=== PATIENT | male | born 1965 | race Caucasian/White ===

== ENCOUNTER 2021-02-28 12:17 | Emergency (ER) | payer OTHER, SELFPAY ==
[2021-02-28] VITALS (9 sets, daily range): BP systolic 128–184; BP diastolic 77–109; PULSE 66–85; RESP 16–20; TEMP 36.9; O2SAT 94–98; BMI 30.4
--- NOTE | 2021-02-28 12:17 | ECG_ITS ---
APPROVED REPORT Exam: Resting ECG HR:82 bpm ECG Measurements Heart Rate 82 AXES NV 160 P 30 QRSd 88 QRS 33 QT 382 T 16 QTc 446 Conclusion Normal sinus rhythm Inferior infarct, age undetermined Abnormal ECG Electronically signed by : Jaquan Retana, 02/28/2021 20:06:52
--- NOTE | 2021-02-28 12:18 | XR_ITS ---
PROCEDURE: XR CHEST PORTABLE CLINICAL HISTORY: chest pain COMPARISON: No exams were available for comparison FINDINGS: The cardiomediastinal silhouette and pulmonary vascularity are within normal limits. The lungs are clear without infiltrates, suspicious nodules, or pleural effusions. No acute bony abnormalities. IMPRESSION: No acute findings. Dictated by: Adal Osorio MD 02/28/2021 14:22 Adal Osorio MD in [facility] 02/28/2021 14:22
[2021-02-28 12:29] LABS: Basophils % 0.5 % (0.1-2.0); Eosinophils # 0.1 K/mm3 (0.0-0.4); Eosinophils % 1.2 % (0.1-12.0); Hematocrit 44.3 % (42.0-52.0); Hemoglobin 14.9 g/dL (14.1-18.0); Lymphocytes # 2.4 K/mm3 (0.7-4.5); Lymphocytes % 29.4 % (10-50); Mean Corpuscular HGB Conc 33.6 g/dL (31.8-35.4); Mean Corpuscular Hemoglobin 30.6 pg (27.0-31.2); Mean Corpuscular Volume 91.2 fl (80-94); Mean Platelet Volume 7.9 fl (7.4-10.4); Monocytes # 0.5 K/mm3 (0.1-1.0); Monocytes % 6.1 % (1.7-9.3); Neutrophils % 62.7 % (37.0-80.0); Platelet Count 252 K/mm3 (142-424); Red Blood Count 4.86 M/mm3 (4.60-6.20); Red Cell Distribution Width 13.1 % (11.5-17.5)
[2021-02-28 12:34] LABS: Chloride 105 mmol/L (98-107); Potassium 3.7 mmoL/L (3.5-5.1); Sodium 139 mmol/L (136-145)
--- NOTE | 2021-02-28 12:36 | [facility].EDCP ---
ED Disposition Clinical Impression: Atypical chest pain Disposition: Home, Self-Care Condition on Discharge: Fair Instructions: DI for Atypical Chest Pain Additional Instructions: Follow up with Cardiology with in the next week for consideration of further outpt testing such as exercise stress testing for further evalation. - Critical Care Critical Care Time: No Attestation: On , the high probability of a clinically significant, sudden or life threatening deterioration of the following system(s) required my full and direct attention, intervention and personal management. The time I documented below is in addition to time spent performing reported procedures but includes the following listed in this critical care notation. Medical Decision Making - Medical Records Medical records reviewed: Yes: I reviewed the patient's medical records. - Yevgeniy Inquiry Pt receiving controlled substance: No Vital Signs: 02/28/21 12:17 02/28/21 13:01 02/28/21 13:31 Temperature 98.4 F Temperature Source Oral Pulse Rate 70 68 Pulse Rate [Right Radial] 85 Respiratory Rate 18 18 18 Blood Pressure 134/80 136/90 Blood Pressure [Right Arm] 184/109 H Blood Pressure Mean 98 100 Blood Pressure Mean [Right Arm] 134 Blood Pressure Source [Right Arm] Automatic Cuff Blood Pressure Position [Right Arm] Sitting 02 Sat by Pulse Oximetry 98 97 98 Oxygen Delivery Method Room Air 02/28/21 14:00 02/28/21 14:30 02/28/21 15:00 Temperature Temperature Source Pulse Rate 74 69 66 Pulse Rate [Right Radial] Respiratory Rate 16 20 16 Blood Pressure 128/77 143/85 H 130/85 Blood Pressure [Right Arm] Blood Pressure Mean 94 99 93 Blood Pressure Mean [Right Arm] Blood Pressure Source [Right Arm] Blood Pressure Position [Right Arm] 02 Sat by Pulse Oximetry 96 94 L 94 L Oxygen Delivery Method 02/28/21 15:30 02/28/21 16:00 Temperature Temperature Source Pulse Rate 71 68 Pulse Rate [Right Radial] Respiratory Rate 16 18 Blood Pressure 131/80 136/91 H Blood Pressure [Right Arm] Blood Pressure Mean 92 102 Blood Pressure Mean [Right Arm] Blood Pressure Source [Right Arm] Blood Pressure Position [Right Arm] 02 Sat by Pulse Oximetry 95 98 Oxygen Delivery Method - Lab Data Lab results reviewed: Yes: I reviewed the patient's lab results. Lab Results 02/28/21 12:20: WBC 8.0, RBC 4.86, Hgb 14.9, Hct 44.3, MCV 91.2, MCH 30.6, MCHC 33.6, RDW 13.1, Plt Count 252, MPV 7.9, Neut % (Auto) 62.7, Lymph % (Auto) 29.4, Mccone % (Auto) 6.1, Eos % (Auto) 1.2, Baso % (Auto) 0.5, Neut # (Auto) 5.0, Lymph # (Auto) 2.4, Mccone # (Auto) 0.5, Eos # (Auto) 0.1, Baso # (Auto) 0.0 02/28/21 12:20: Sodium 139, Potassium 3.7, Chloride 105, Carbon Dioxide 27, Anion Gap 10.7, BUN 9, Creatinine 1.00, Estimated Creat Clear 116, Estimated GFR 78, Est GFR ( Amer) 95, Glucose 124 H, Calcium 9.2, CK-MB (CK-2) 0.3, Troponin I < 0.01 02/28/21 12:20: NT-Pro-B Natriuret Pep 32.6 02/28/21 15:45: Troponin I < 0.01 Result diagrams: 02/28/21 12:20 02/28/21 12:20 Orders (Tests/Meds): ED MEDICATIONS Discontinued Medications Generic Name Dose Route Start Last Admin Trade Name Dane PRN Reason Stop Dose Admin Aspirin 324 mg 02/28/21 12:18 02/28/21 12:19 Aspirin 81mg Chewable Tablet PO 02/28/21 12:19 324 mg ONCE ONE Administration ORDERS Category Date Time Status Troponin I Q3H Lab 02/28/21 18:30 Ordered - Radiology Data #1 Image(s): Chest Image Reviewed: Yes I reviewed the patient's radiology results Preliminary Findings: Normal/NAD - ECG Data Tracing #1 ECG initial impression date: 02/28/21 ECG initial impression time: 12:15 ECG normal with no acute: arrhythmias, ischemia, conduction abnormalities, chamber hypertrophy Normal Sinus Rhythm: Yes Chest Pain HPI - General Chief Complaint: Chest Pain Stated Complaint: chest pain Time Seen by Provider: 02/28/21 12:17 -
[2021-02-28 12:37] LABS: Anion Gap 10.7 mEq/L (5-15); Blood Urea Nitrogen 9 mg/dl (9-20); Calcium 9.2 mg/dl (8.4-10.2); Carbon Dioxide 27 mmol/L (22.0-30.0); Creatinine Clearance Estimated 116 mL/min (50-200); Estimated Glomerular Filt Rate 78 ml/min (>60); GFR (African American) 95 ML/MIN (>60); Glucose 124 mg/dl (74-100)
[2021-02-28 12:47] LABS: Creatine Kinase MB 0.3 ng/ml (0.0-2.03); NT Pro Brain Natriuretic Pep. 32.6 pg/mL (0-125)
[2021-02-28 12:58] LABS: Troponin I < 0.01 ng/ml (0.00-0.034)
[2021-02-28 16:15] LABS: Troponin I < 0.01 ng/ml (0.00-0.034)
== END 2021-02-28 16:40 | disposition home or self-care (01) ==
PROVIDERS: Emergency Provider Emergency Medicine
DX: R07.89 Other chest pain (principal)
CPT/HCPCS: 36415; 71045; 80048; 82553; 83880; 84484; 85025; 93005; 99282